=== PATIENT | female | born 1940 | race Caucasian/White ===

== ENCOUNTER 2021-10-11 15:44 | Emergency (ER) | payer MEDICARE, SELFPAY ==
[2021-10-11 15:47] VITALS: BP 177/96; PULSE 99; RESP 16; TEMP 36.8; O2SAT 97
[2021-10-11 16:24] LABS: Appearance Urine Slightly Cloudy (Clear); Bilirubin Urine Negative (Negative); Color Urine Yellow (Yellow); Glucose Urine UA Negative (Negative); Ketones Urine Negative (Negative); Leukocyte Esterase Ur 2+ LEU/UL (Negative); Nitrate Urine Positive (Negative); Protein Urine Negative (Negative); Specific Grav Ur 1.015 (1.001-1.035); Urobilinogen Urine 0.2 mg/dL (<2.0)
[2021-10-11 16:31] LABS: Bacteria Urine Trace /hpf; Mucus Urine Rare /lpf; Squamous Epithelial Cell Urine Rare /hpf (Few); WBC Urine 31-50 /hpf
[2021-10-11 16:32] LABS: Add Urine Microscopic? YES; Blood Urine Trace-Intact (Negative)
--- NOTE | 2021-10-11 16:41 | ED.GENADULT ---
HPI - General Adult General Chief complaint: Urogenital-Female Stated complaint: UTI Time Seen by Provider: 10/11/21 15:56 History of Present Illness HPI narrative: Patient is a 80-year-old female who presents ER with concern for UTI. Was diagnosed with UTI by Dr. Russell's office last week. She is unsure if it was resistant to any antibiotics but she has a long list of antibiotic allergies. She is scheduled to see valve patient tobramycin infusions but only received one-time dose while in ER at [facility]. Patient is having no fevers or chills or sweats. She is having dysuria and urinary frequency and urgency with some suprapubic pressure. She has come here to seek definitive treatment. Related Data Allergies Allergy/AdvReac Type Severity Reaction Status Date / Time cefaclor Allergy Unknown Urticaria Verified 05/14/18 14:43 ceftriaxone Allergy Unknown Unverified 05/25/15 12:45 cephalexin Allergy Unknown Urticaria Verified 05/14/18 14:43 ciprofloxacin Allergy Unknown Unverified 05/25/15 12:45 levofloxacin Allergy Unknown Urticaria Verified 05/14/18 14:43 metronidazole Allergy Unknown Urticaria Verified 05/14/18 14:43 Penicillins Allergy Unknown Urticaria Verified 05/14/18 14:43 Sulfa (Sulfonamide Allergy Unknown Urticaria Verified 05/14/18 14:43 Antibiotics) sulfamethoxazole Allergy Unknown Unverified 05/25/15 12:45 tetracycline Allergy Unknown Purpura Verified 05/14/18 14:43 trimethoprim Allergy Unknown Unverified 05/25/15 12:45 codeine AdvReac Unknown NAUSEA Unverified 05/25/15 12:45 Review of Systems Constitutional: Constitutional: Denies chills and Denies fever(s) Gastrointestinal: Gastrointestinal: Reports abdominal pain, Denies diarrhea, Denies nausea and Denies vomiting Genitourinary: Genitourinary: Denies hematuria, Reports dysuria, Denies flank pain and Denies urinary incontinence PMF Past Medical History Medical History (Updated 10/11/21 @ 21:52 by John Cooper MD) PMR (polymyalgia rheumatica) Family History Family History (Updated 05/14/18 @ 15:16 by DOCTOR UNKNOWN) Mother Family history of malignant neoplasm, Onset Age: 34 Sibling Family history of malignant neoplasm, Onset Age: 68 Grandparent Family history of dementia Social History Social History Smoking status: Never smoker Alcohol intake: current Exam Narrative: GENERAL: Well-appearing, well-nourished, and in no acute distress. HEAD: Normocephalic, atraumatic. CHEST: Clear to auscultation. No respiratory distress. HEART: Regular rate and rhythm. Normal peripheral pulses. ABDOMEN: Soft, nontender, nondistended. EXTREMITIES: Normal range of motion. No edema. SKIN: Warm, dry, no rash. NEURO: Alert and oriented x3. PSYCH: Normal mood and affect. Course Course Emergency Course: Patient resting comfortably. Discussed case with Dr. Russell's office. Currently patient has an E. coli infection that is pansensitive. We will prescribe fosfomycin as a one-time dose outpatient. Vital Signs Vital signs: Vital Signs Temperature 98.2 F 10/11/21 15:47 Pulse Rate 99 10/11/21 15:47 Respiratory Rate 16 10/11/21 15:47 Blood Pressure 177/96 H 10/11/21 15:47 Pulse Oximetry 97 10/11/21 15:47 Oxygen Delivery Room Air 10/11/21 15:47 Temperature 98.2 F 10/11/21 15:47 Pulse Rate 78 10/11/21 17:35 Respiratory Rate 18 10/11/21 17:35 Blood Pressure 142/68 H 10/11/21 17:35 Pulse Oximetry 99 10/11/21 17:35 Oxygen Delivery Room Air 10/11/21 15:47 Medical Decision Making Vital Signs Vital Signs: Vital Signs Temperature 98.2 F 10/11/21 15:47 Pulse Rate 99 10/11/21 15:47 Respiratory Rate 16 10/11/21 15:47 Blood Pressure 177/96 H 10/11/21 15:47 Pulse Oximetry 97 10/11/21 15:47 Oxygen Delivery Room Air 10/11/21 15:47 Temperature 98.2 F 10/11/21 15:47 Pulse Rate 78 10/11/21 17:35 Respiratory Rate 18 10/11/21 17:35 Blood Pressure 142/68 H 07
[2021-10-11 17:35] VITALS: BP 142/68; PULSE 78; RESP 18; O2SAT 99
== END 2021-10-11 17:36 | disposition home or self-care (01) ==
PROVIDERS: Emergency Provider Emergency Medicine; PCP Internal Medicine
DX: N39.0 Urinary tract infection, site not specified (principal); M35.3 Polymyalgia rheumatica
CPT/HCPCS: 81001; 87077; 87086; 87186; 99283

== ENCOUNTER 2023-03-20 07:17 | Outpatient (RCR) | payer MEDICARE, SELFPAY ==
[2023-03-14 09:16] VITALS: BMI 22.6
--- NOTE | 2023-04-12 10:23 | PCWOUND ---
WOCN NOTE Patient did not show up for appointment. called her, she is ill and can not come in at this time. she will call back if another appointment is needed when she is better.
== END 2023-05-28 08:13 | disposition home or self-care (01) ==
LOC: ANHWOC 07:17
PROVIDERS: PCP Physician Assistant Medical; Visit Provider Physician Assistant Medical
DX: S81.811D Laceration without foreign body, right lower leg, subsequent encounter (principal)
CPT/HCPCS: 99213; A9270; G0463

== ENCOUNTER 2025-01-05 11:54 | Outpatient (CLI) | payer MEDICARE, SELFPAY ==
--- NOTE | ~2025-01-05 | XR_ITS ---
Examination: XR chest 2V Clinical History: sob Comparison: 05/07/2022 Technique: PA and Lateral Findings: Cardiomediastinal silhouette normal size and configuration. Lungs clear. Calcified granulomata. No acute bony abnormality. IMPRESSION: 1. No acute cardiopulmonary findings. Reviewed, dictated and finalized at location R.
--- OUTSIDE RECORDS SUMMARY | 2025-01-05 12:08 | XMS_ITS | Encounter Summary ---
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 80mg [facility] [address] [place] [address] Phone: tel: Referral ID Status Reason Start Date Expiration Date V isits Requested Visits Authorized [id number] Closed Specialty Services 11/02/2020 12/03/2021 5 5 Encounter Details Date Type Department Care Team (Late st Contact Info) Description 11/02/2020 Therapy Plan [facility] [address] [place] [address] Los Russell MD [facility]ly [facility] [place] [address] Social History Tobacco Use Types Packs/Day Years Used Date Smoking Tobacco: Former Cigarettes 2 40 1 967 - 2007 Smokeless Tobacco: Never Alcohol Use Standard Drinks/Week Comments Yes 0 (1 standard drink = 0.6 oz pur e alcohol) occasionally drink wine AUDIT-C Answer Date Recorded Frequency of Alcohol Consumption 2-4 times a sun08/29/2018 Average Number of Drinks 1 or 2 019 Frequency of Binge Drinking Not on file 08/08 Comments No Sex and Gender Information Value Date Recorded Sex Assigned at Female 09/25/2024 9:21 AM CDT Legal Sex Female 7:07 PM CDT Gender Identity Female 09/25/2024 9:21 AM CDT Sexual Orientation Not on file COVID-19 Exposure Response Date Recorded In the last month, have you been in contact with someone who was confirmed or suspected to have Coronavirus / COVID-19? No / Unsure 11/05/2020 12:23 PM CDT documented as of this encounter Functional Status * RETIRED Are you deaf or do you have serious difficulty hearing Answer Date of Assessment Author Status No 09/20/2018 5:17 PM CDT Activ e * RETIRED Are you blind or do you have serious difficulty seeing, even when wearing glasses? Answer Date of Assessment Author Status No 09/20/2018 5:17 PM CDT Activ e * Do you have serious difficulty walking or climbing stairs? Answer Date of Assessment Author Status No 09/20/2018 5:17 PM CDT Mimi Cabrera R N Active * Do you have difficulty dressing or bathing? Answer Date of Assessment Author Status No 09/20/2018 5:17 PM CDT Mimi Cabrera R N Active * Because of a physical, mental, or emotional condition, do you have difficulty doing errands alone such as visiting a doctor's office or shopping? Answer Date of Assessment Author Status No 09/20/2018 5:17 PM CDT Mimi Cabrera R N Active documented as of this encounter Mental Status * Because of a physical, mental, or emotional condition, do you have serious difficulty concentrating, remembering, or making decisions? 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
--- OUTSIDE RECORDS SUMMARY | 2025-01-05 12:08 | XMS_ITS | Encounter Summary ---
Author Organization [facility] Address [address] [place], [place] [address] [address] Care Team Providers Care Workers' Compensation Claims Supervisor Name Role Phone Delmis Sibley Primary Care Provider [phone] Encounter Details Date Type Department Care Team (Late Contact Info) Description 12/26/2024 Orders Only [facility] - Rheumatology [address], [address] [place] [address] Emile Morris DO [address] [facility] [address] [place] [address] Rheumatoid arthritis involving multiple joints (HCC) Social History Tobacco Use Types Packs/Day Years Used Date Smoking Tobacco: Never Smokeless Tobacco: Never Alcohol Use Standard Drinks/Week Comments Yes 0 (1 standard drink = 0.6 oz pur e alcohol) PHQ-2 Answer Date Recorded Patient Health Questionnaire-2 Score 0 12/18/2024 Comments Unknown Sex and Gender Information Value Date Recorded Sex Assigned at Not on file 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 - Rheumatology [address], [address] [place] [address] Emile Morris DO [address] [place] [address] Elevated serum creatinine 08/13/2025 11:20 AM CDT Office Visit [facility] - Rheumatology [address] [facility], [address] [place] [address] Emile Morris DO [address] [facility] [address] [place] [address] documented as of this encounter Visit Diagnoses Diagnosis Rheumatoid arthritis involving multiple joints (HCC) Elevated serum creatinine Other nonspecific findings on examination of blood documented in this encounter Care Teams Workers' Compensation Claims Supervisor Relationship Specialty Start Date End Date Delmis Sibley PA [address] [place] [address] PCP - General Physician Radiologic Electronic Specialist 07/21/24 documented as of this encounter
--- OUTSIDE RECORDS SUMMARY | 2025-01-05 12:08 | XMS_ITS | Clinical Summary ---
Author Organization [facility] Address [address] [place] [address] Care Team Providers Care Site Director Name Role Phone Delmis Sibley Primary Care Provider [phone] Allergies Active Allergy Reactions Criticality Noted Date Comments Adhesive Other (See comments) Low 08/16/2023 Causes skin tears Azithromycin Hives Medium 09/16/2018 Aztreonam Rash Medium 09/27/2018 Cefaclor Hives Medium 09/16/2018 Ceftriaxone Anaphylaxis High 09/16/2018 Cephalexin Anaphylaxis High 09/16/2018 Ciprofloxacin Hcl Anaphylaxis High 09/16/2018 Clindamycin Hives Medium 09/16/2018 Codeine Vomiting Low 09/16/2018 Etomidate Rash Medium 08/16/2023 Iodinated Contrast Media Rash Medium 09/16/2018 Levofloxacin Hives Medium 09/16/2018 Meropenem Hives Medium 09/16/2018 Metronidazole Hives Medium 09/16/2018 Nitrofurantoin Vomiting Low 09/16/2018 Omeprazole Hives Medium 09/16/2018 Oxycodone Hives Medium 08/16/2023 Penicillin Hives Medium 09/16/2018 Sulfamethoxazole-Trimeth oprim Anaphylaxis High 08/16/2023 Sulfa (Sulfonamide Antibiotics) Anaphylaxis High 09/16/2018 Tetracyclines Hives Medium 09/16/2018 Medications cholecalciferol (VITAMIN D3) 5,000 unit tabletIndications: Vitamin D Deficiency Take 1 tablet (5,000 Units total) by mouth daily Active fluticasone propion-salmeterol (ADVAIR DISKUS) 250-50 mcg/dose diskus inhalerIndications :Bronchospasm Prevention with COPD Inhale 1 puff 2 (two) times a day. Indications: Bronchospasm Prevention with COPD Active folic acid (FOLVITE) 1 mg tabletIndications: Folic Acid Deficient Megaloblastic Anemia Take 1 mg by mouth daily. Indications: Anemia From Inadequate Folic Acid Active hydroCHLOROthiazid e (HYDRODIURIL) 12.5 mg tabletIndications: hypertension Take 12.5 mg by mouth daily. Indications: high blood pressure Active pantoprazole DR (PROTONIX) 40 mg EC tabletIndications: Treatment of Non-Bleeding Gastric Disorder Take 40 mg by mouth daily. Indications: Treatment of Non-Bleeding Gastric Disorder Active predniSONE (DELTASONE) 2.5 mg tabletIndications: autoimmune disease Take 5 mg by mouth daily. Indications: disease in which body has immune response against itself Active levothyroxine (SYNTHROID) 75 mcg tabletIndications: hypothyroidism Take 75 mcg by mouth hot shot before breakfast. Indications: hypothyroidism Active terazosin (HYTRIN) 2 mg capsuleIndications :benign prostatic hyperplasia with lower urinary tract sx Take 2 mg by mouth nightly. Indications: enlarged prostate with urination problem Active diphenhydramine HCl (BENADRYL ORAL)Indications:p revention of allergic reaction Take 25 mg by mouth every 6 (six) hours as needed (prevention of allergic reaction). Indications: prevention of allergic reaction Active ondansetron ODT (ZOFRAN-ODT) 4 mg disintegrating tabletIndications: Prevention of Post-Operative Nausea and Vomiting Take 4 mg by mouth every 4 (four) hours as needed for nausea. Indications: Prevent Nausea and Vomiting After Surgery Active metroNIDAZOLE (FLAGYL) 500 mg tabletIndications: Abdominal/Pelvic Infection Take 500 mg by mouth 2 (two) times a day. RX [id number] take for 10 days Indications: Abdominal/Pelvic Infection 12/10/19 20 Active ALPRAZolam (XANAX) 0.5 mg tabletIndications: anxiety Take 0.25 mg by mouth 2 (two) times a day as needed for anxiety. RX # [id number] Indications: anxious 02/22/20 19 Active potassium chloride ER (potassium chloride ER) 10 mEq CR tabletIndications: hypokalemia Take 10 mEq by mouth 2 (two) times a day. Indications: low amount of potassium in the blood Active oxyCODONE (ROXICODONE) 5 mg immediate release tabletIndications: Pain Take 5 mg by mouth every 4 (four) hours as needed for pain. RX # [id number] Indications: pain 12/12/19 Active DAPTOMYCIN IVIndications:infe ction Infuse 250 mg into a venous catheter daily. 250mg/100 ml normal saline IV over 60 minutes Indications: an infection 12/12/19 Active ceftolozane-tazoba ctam (ZERBAXA) 1.5 gram recon solnIndications:in fection,Other (complete free text reason below) Infuse 1.5 g into a venous catheter every 8 (eight) hours. 1.5 G/100 ml IV over 60 minutes every 8 hours by flow rate tubing set at 100 ml/hour Indications: an infection, Other (complete free text reason below) 12/11/19 Active 0.9 % sodium chloride (INV-BJ sodium chloride 0.9%) injectionIndicatio ns:Maintain Patency of Indwelling Vascular Catheter Infuse 10 mL into a venous catheter 4 (four) times a day. Use SASH method before and after IV antibiotic and prn lab draws Indications: prevent clot from blocking an intravenous catheter 12/11/19 Active heparin sod,porcine/0.9 % NaCl (HEPARIN FLUSH IV)Indications:Parvin ntain Patency of Indwelling Vascular Catheter Infuse 5 mL into a venous catheter 4 (four) times a day. Use SASH method and prn lab draws Indications: prevent clot from blocking an intravenous catheter 12/11/19 Active levothyroxine (SYNTHROID) 50 mcg tabletIndications: hypothyroidism Take 50 mcg by mouth hot shot before breakfast. Indications: a condition with low thyroid hormone levels Active albuterol sulfate (VENTOLIN HFA INHAL)Indications: SOB Inhale 1 puff every 4 (four) hours as needed (SOB). Indications: SOB Active folic acid/multivit-min/ lutein (CENTRUM SILVER ORAL)Indications:V ITAMIN HEALTH Take 1 mg by mouth daily. Indications: VITAMIN HEALTH Active cholecalciferol, vitamin D3, (VITAMIN D3 ORAL)Indications:V ITAMIN HEALTH Take 1 capsule by mouth daily. 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 08/14/2023 Dysfunction of left eustachian tube 08/14/2023 Tinnitus of both ears 08/14/2023 Surgical History Surgery Date Site/Laterality Comments TONSILLECTOMY TUBAL LIGATION HERNIA REPAIR COLECTOMY EYE SURGERY cataracts OTHER SURGICAL HISTORY iliostomy hertnia OTHER SURGICAL HISTORY cardiac ablation Medical History Medical History Date Comments Autoimmune disease Anxiety COPD (chronic obstructive pulmonary disease) Heart disease A-fib (HCC) HL (hearing loss) Family History Medical History Relation Name Comments Cancer Mother Cancer Sister Relation Name Status Comments Mother Sister Social History Tobacco Use Types Packs/Day Years Used Date Smoking Tobacco: Former Cigarettes Smokeless Tobacco: Never Comments Unknown Sex and Gender Information Value Date Recorded Sex Assigned at Not on file 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 Gender Identity Not on file Sexual Orientation Not on file Obstetrics History Last Filed Vital Signs Vital Sign Reading Time Taken Comments Blood Pressure 130/82 02/05/2020 1:08 PM CDT Pulse 74 02/05/2020 1:08 PM CDT Temperature 36.6 C (97.8 F) 02/05/2020 1:08 PM CDT Respiratory Rate 18 08/16/2023 8:51 AM CDT Oxygen Saturation 98% 02/05/2020 1:08 PM CDT Inhaled Oxygen Concentration - - Weight 52.2 kg (115 lb) 08/16/2023 8:51 AM CDT Height 152.4 cm (5') 08/16/2023 8:51 AM CDT Body Mass Index 22.46 08/16/2023 8:51 AM CDT Plan of Treatment Health Maintenance Due Date Last Done Comments Depression Screening 1941 Fall Risk Assessment 1940 Hepatitis B Screening 12/15/1959 Pneumococcal vaccine 65+ (1 of 2 - PCV) 1960 Zoster Vaccine (1 of 2) 12/15/1991 Well Visit 65+ 2006 Covid-19 Vaccine (3 - season) 12/08/202409/2020, 06/15/2020 Influenza Vaccine (#1) 2024 01/30/2012 Osteoporosis Screening-Bone Density Scan 01/11/2025 01/11/2023 DTaP/Tdap/Td Vaccine (3 - Td or Tdap) 01/11/203108/2020, 10/12/2016 Insurance MEDICARE [facility] MEDICARE [facility] Advance Directives For more information, please contact: [phone] * Full Code (Latest Code Status on File) Date Activated Date Inactivated Comments 09/16/2018 9:53 PM Care Teams Site Director Relationship Specialty Start Date End Date Delmis Sibley PA [address] [place] [id number] PCP - General Family Practice 07/30/23
--- OUTSIDE RECORDS SUMMARY | 2025-01-05 12:08 | XMS_ITS | Clinical Summary ---
Author Organization [facility] Administrative Offices Address [address] [place] [id number] Care Team Providers Care Glass Cylinder Flanger Name Role Phone Eduardo Inman MD Primary Care Provider [phone] Allergies Active Allergy Reactions Criticality Noted Date Comments Adhesive Other (See Comments) 11/10/2019 Causes skin tears. Azithromycin Hives High 09/04/2019 Aztreonam Hives High 09/04/2019 Cefaclor Hives High 09/04/2019 Ceftriaxone Anaphylaxis High 09/04/2019 Cephalexin Anaphylaxis High 09/04/2019 Ciprofloxacin Anaphylaxis High 09/04/2019 Clindamycin Hives High 09/04/2019 Codeine Nausea and Vomiting Low 09/04/2019 Etomidate Rash Low 04/19/2021 Iodinated Contrast Media Rash Low 09/04/2019 Iodine Rash Medium 08/28/2018 Can have if pre-medicated with Benadryl and solumedrol Levofloxacin Hives High 09/04/2019 Meropenem Hives High 09/04/2019 Metronidazole Hives High 09/04/2019 Nitrofuran Analogues Nausea and Vomiting Low 2019 Omeprazole Hives High 09/04/2019 Oxycodone-Acetaminophen Hives High 12/01/2019 Penicillins Hives High 09/04/2019 Sulfamethoxazole Other (See Comments) Low 12/12/2013 Unknown Sulfamethoxazole-Trimetho prim Anaphylaxis High 09/04/2019 Tetracycline Hcl Anaphylaxis High 09/04/2019 Trimethobenzamide Other (See Comments) Low 12/12/2013 Unknown Medications fluticasone propion-salme teroL (ADVAIR DISKUS,WIXELA INHUB) 250-50 mcg/dose disk inhaler Take 2 Puffs by inhalation see administration instructions. She says she only takes as needed Active ALPRAZolam (XANAX) 0.25 mg tablet Take 0.25 mg by mouth nightly as needed for Anxiety (pt takes 1/2 pill). Active cholecalcifer ol, vitamin D3, (VITAMIN D3 ORAL) Take 2,000 Units by mouth. Active multivit-min/ iron/folic/gia tein (MULTIVITAMIN WOMEN 50 PLUS ORAL) Take 1 mg by mouth. Active terazosin (HYTRIN) 1 mg capsule Take 1 mg by mouth daily at bedtime. Says she takes PRN for blood pressure Active levothyroxine 50 mcg tablet Take 50 mcg by mouth daily in the morning. Alternates taking 50 mg and 75 mg every other day Active diphenhydrAMI NE (BENADRYL) 25 mg capsule Take 50 mg by mouth every 6 hours as needed for Allergies. Active estradioL (ESTRACE) 0.01% (0.1 mg/g) vaginal cream Insert vaginally daily. Active cranberry-vit rosales C-vitamin E (Cranberry Concentrate) 140-100 mg Capsule Take by mouth daily. Active ascorbic acid (vitamin C) 500 mg chewable tablet Take 500 mg by mouth daily. Active predniSONE (DELTASONE) 2.5 mg tablet Take 2.5 mg by mouth daily. Is taking 10/07/24 2 tabs daily Active triamcinolone acetonide (Kenalog) 40 mg/mL Suspension 40 mg one time only. Active glycopyrrolat e-neostigmine (Prevduo) 0.6 mg-3 mg/3mL (0.2 mg-1mg/mL) Syringe Inject by intravenous injection. Not taking Active ketoconazole (NIZORAL) 2 % Cream APPLY TO THE AFFECTED AREA(S) toenails BY TOPICAL ROUTE ONCE DAILY 09/24/19 24 Active apixaban (Eliquis) 2.5 mg tablet Take 1 tablet by mouth twice daily 60 Tablet 2 09/20/19 25 Active calcium as CARBONATE-vit rosales D3 (CALTRATE 600+D) 600 mg-5 mcg (200 unit) Tablet Take 2 Tablets by mouth 2 times daily. Active methotrexate (RHEUMATREX) 2.5 mg Tablet TAKE 6 TABLETS BY MOUTH ONCE A WEEK AT BEDTIME EACH SUNDAY Active folic acid (FOLVITE) 1 mg tablet TAKE 1 TABLET BY MOUTH ONCE DAILY TO REDUCE RISK OF METHOTREXATE RELATED SIDE EFFECTS Active rosuvastatin (Crestor) 5 mg tablet Take 1 Tablet (5 mg) by mouth daily. 90 Tablet 3 10/08/19 25 Active dilTIAZem (CARDIZEM CD, CARTIA XT) 120 mg Controlled Delivery 24 hour capsule Take 1 capsule by mouth once daily 90 Capsule 2 12/20/19 25 Active dilTIAZem (CARDIZEM CD, CARTIA XT) 120 mg Controlled Delivery 24 hour capsule Take 1 capsule by mouth once daily 90 Capsule 09/23/19 25 2024 Discontinued Active Problems Patient Care Coordination No te Formatting of this note migh t be different from the original. Seth Salazar MD--Internal Control Consultant ([facility] @ ) Duane Ham MD--Internal Control Consultant ([facility] @ ) Problem Noted Date Diagnosed Date Mixed hyperlipidemia 12/11/2023 Paroxysmal atrial fibrillation 09/21/2022 Palpitations 04/19/2021 COPD (chronic obstructive pulmonary disease) 02/2022 PMR (polymyalgia rheumatica) 04/19/2021 Hyperglycemia 04/19/2021 Benign hypertension 09/16/2020 Protein-calorie malnutrition, moderate 0 Atrial flutter 11/30/2019 Sepsis 11/30/2019 Intra-abdominal abscess 11/30/2019 Hyponatremia 11/30/2019 Abdominal wall abscess at site of surgical wound 11/30/2019 Intestinal obstruction 11/03/2019 Peristomal hernia 11/03/2019 Confusion 11/03/2019 Dehydration 11/03/2019 Ileostomy status 09/06/2019 Atrial fibrillation with RVR Probable sepsis Allergy to multiple antibiotics Pseudomonas aeruginosa infection History of hernia repair History of diverticulitis Encounters Date Type Department Care Team Description 12/19/2024 Refill [facility] [address] [place] [address] Duane Ham MD 10/28/2024 External Device Data STL ABSTRACTION Provider, Abstract 10/22/2024 External Device Data STL ABSTRACTION Provider, Abstract 10/22/2024 External Device Data ST[facility] ABSTRACTION Provider, Abstract 10/07/2024 8:15 AM CDT Office Visit [facility] [address] [place] [address] Duane Ham MD Paroxysmal atrial fibrillation (CMS/HCC) (Primary Dx); Mixed hyperlipidemia; Benign hypertension from Last 3 Months Family History Medical History Relation Name Comments No Known Problems Brother No Known Problems Daughter No Known Problems Father No Known Problems Maternal Grandfather No Known Problems Maternal Grandmother Hypertension Mother Ovarian Cancer Mother Heart Disease Other No Known Problems Paternal Grandfather No Known Problems Paternal Grandmother Breast Cancer Sister No Known Problems Son Relation Name Status Comments Brother Daughter Father Maternal Grandfather Maternal Grandmother Mother Other Paternal Grandfather Paternal Grandmother Sister Son Social History Tobacco Use Types Packs/Day Years Used Date Smoking Tobacco: Former Cigarettes Q uit: 05/26/2006 Smokeless Tobacco: Never Tobacco Cessation:Counseling Given: Not Answered Alcohol Use Standard Drinks/Week Comments Yes 5 (1 standard drink = 0.6 oz pur e alcohol) Comments No Sex and Gender Information Value Date Recorded Sex Assigned at Not on file Legal Sex Female 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 Gender Identity Not on file Sexual Orientation Not on file Last Filed Vital Signs Vital Sign Reading Time Taken Comments Blood Pressure 154/84 10/07/2024 8:15 AM CDT Pulse 73 10/07/2024 8:15 AM CDT Temperature 36.6 C (97.8 F) 10/08/2021 12:08 AM CDT Respiratory Rate 18 10/08/2021 12:08 AM CDT Oxygen Saturation 96% 10/07/2024 8:15 AM CDT Inhaled Oxygen Concentration - - Weight 50.8 kg (112 lb) 10/07/2024 8:15 AM CDT Height 157.5 cm (5' 2) 10/07/2024 8:15 AM CDT Body Mass Index 20.49 10/07/2024 8:15 AM CDT Plan of Treatment Upcoming Encounters Date Type Department Care Team (Late st Contact Info) Description 10/08/2025 9:30 AM CDT Office Visit [facility] [address] [place] [address] Duane Ham MD [address] [place] [address] [address] [place] [id number] Health Maintenance Due Date Last Done Comments PNEUMOCOCCAL VACCINE 50+ YEA RS (1 of 2 - PCV) 1960 ZOSTER VACCINE (1 of 2) 12/15/1991 RSV VACCINE (60+ or ) (1 - 1-dose 75+ series) 2016 INFLUENZA VACCINE (#1) 2024 COVID-19 Vaccine (3 - 2024-2 6 season) 2024 07/13/2020, 06/15/2020 OSTEOPOROSIS SCREENING 01/12/2028 , 01/11/2023, 07/30/2017 DTAP/TDAP/TD VACCINES (3 - T d or Tdap) 01/11/2031 01/11/2021, 10/12/2016 COLORECTAL SCREENING Discontinued 12/05/2018, 06/01/19 16 Colorectal Cancer Screening Discontinued Flex Sig/CT Colonography Q 5 years Discontinued 09/15/2019, 09/15/2019, 12/05/2018 FIT-DNA Q 3 years Discontinued FIT/FOBT Q 1 year Discontinued Medical Devices Implanted Type Area Academic Affairs Assistant Device Identifier Shelf Expiration Date Model / Serial / Lot Barrier Seprafilm 3x5in [id number] - [id number] Implanted:Qty : 1 on 11/19/2019 by Addison Malagon MD at [facility] Adhesion Barrier N/A: Abdomen [employer] [id number] 10/06/2021 [id number] / / [id number] Dev Vns Vasc Clsr Vascade Mvp [address] [id number] - [id number] Implanted:Qty : 1 on 05/17/2021 at [facility] Closure Device Right: Groin [employer] [id number] / / [id number] Dev Vns Vasc Clsr Vascade Mvp [address] [id number] - [id number] Implanted:Qty : 1 on 05/17/2021 at [facility] Closure Device Right: Groin [employer] [id number] / / [id number] Dev Vns Vasc Clsr Vascade Mvp St [id number] - [id number] Implanted:Qty : 1 on 05/17/2021 at [facility] Closure Device Left: Groin [employer] [id number] / / [id number] Mesh [address] 4.5in Rnd [id number] - [id number] Implanted:Qty : 1 on 11/19/2019 by Addison Malagon MD at [facility] Mesh N/A: Abdomen CR [employer] [id number] 01/04/2021 [id number] / / [id number] Description:req# [id number] Procedures Procedure Name Priority Date/Time Associated Diagnosis Comments FLEXIBLE SIGMOIDOSCOPY REPORT 09/15/2019 10:44 AM CDT from Last 3 Months or Most Recently Relevant to Health Maintenance Results * FLEXIBLE SIGMOIDOSCOPY REPORT (09/15/2019 10:44 AM CDT) Narrative Procedure Note Addison Malagon MD - 09/15/2019 10:43 AM CDT [facility] Endoscopy Patient Name: Lisa Felix Procedure Date: 09/15/2019 Date of : 1940 Admit Type: Outpatient Attending MD: Addison Malagon , Procedure: Flexible Sigmoidoscopy Indications: Evaluate anatomy prior to consideration of ileostomy reversal, hx of total abdominal colectomy and prior partial colectomy Providers: Addison Malagon Referring MD: Medicines: Propofol per Anesthesia Complications: No immediate complications. Procedure: Informed consent was obtained for the procedure, including moderate sedation after risks were discussed. Based on the pre-procedure assessment, including review of the patient's medical history, medications, allergies, and review of systems, the patient was deemed to be an appropriate candidate for sedation. A timeout was performed. Continuous ECG monitoring, pulse oximetry, blood pressure monitoring, and direct observation were performed. The Colonoscope was introduced through the anus and advanced to the sigmoid colon. The flexible sigmoidoscopy was accomplished without difficulty. The patient tolerated the procedure well. The quality of the bowel preparation was good. Estimated Blood Loss: Estimated blood loss: none. Findings: The perianal and digital rectal examinations were normal. The entire examined rectal stump appeared normal. Appears to be an side-to-end prior colorectal anastomosis. Impression: - The entire examined colon is normal. - No specimens collected. Recommendation: - Patient has a contact number available for emergencies. The signs and symptoms of potential delayed complications were discussed with the patient. Return to normal activities tomorrow. Written discharge instructions were provided to the patient. Addison Malagon, 09/15/2019 10:43:18 AM Number of Addenda: [address]; [place] [address] Addison Malagon MD GI PROCEDURE ORDERABLES Fi nal Result from Last 3 Months or Most Recently Relevant to Health Maintenance Insurance MEDICARE PART A AND B [facility] Medicare Part D Advance Directives For more information, please contact: [phone] Documents on File Type Date Recorded Patient Engagement Liaison Expl anation Advance Directive Living Will 11/19/2019 6:20 AM Advance Directive POA 11/19/2019 6:20 AM A dvance Directive POA * Full Code (Latest Code Status on File) Date Activated Date Inactivated Comments 05/17/2021 10:14 AM 05/17/2021 9:06 PM * Full Code Date Activated Date Inactivated Comments 04/19/2021 12:15 PM 04/19/2021 9:06 PM * Full Code Date Activated Date Inactivated Comments 04/19/2021 5:16 AM 04/19/2021 12:15 PM * Full Code Date Activated Date Inactivated Comments 11/19/2019 8:08 PM 11/23/2019 3:21 PM * Full Code Date Activated Date Inactivated Comments 11/19/2019 5:36 AM 11/19/2019 8:07 PM Care Teams Glass Cylinder Flanger Relationship Specialty Start Date End Date Eduardo Inman MD [address] [place] [id number] PCP - General Family Practice 09/28/23
--- OUTSIDE RECORDS SUMMARY | 2025-01-05 12:08 | XMS_ITS | Clinical Summary ---
Author Organization [facility] Address [address] [place] [address] Care Team Providers Care Radar Signal Processing Engineer Name Role Phone Delmis Joyner PA-C Primary Care Provider [phone] Allergies Active Allergy Reactions Criticality Noted Date Comments Azithromycin Hives 02/02/2012 Cefaclor Hives 02/02/2012 Cephalexin Anaphylaxis High 02/02/2012 Ciprofloxacin Anaphylaxis High 02/02/2012 Clindamycin Hives 08/28/2018 Codeine Vomiting 02/02/2012 Iodine Rash Low 08/28/2018 Can have if pre-medicated with Benadryl and solumedrol Levofloxacin Hives 02/02/2012 Meropenem Hives High 08/30/2018 Metronidazole Hives 02/02/2012 Nitrofuran Derivatives Nausea and Vomiting Low 08/08 Nitrofurantoin Vomiting 08/29/2018 Omeprazole Hives 08/28/2018 Penicillins Hives 02/02/2012 Ceftriaxone Anaphylaxis High 08/29/2018 Sulfamethoxazole-Trimetho prim Anaphylaxis High 02/02/2012 Tetracyclines & Related Anaphylaxis High 02/02/2012 Trimethobenzamide Other (see comment) Low 4 Unknown Medications terazosin 2 MG capsule Take 1 capsule by mouth as needed. 2 08/09/19 19 Active ADVAIR DISKUS 250-50 MCG/DOSE inhaler Inhale 1 puff into the lungs 2 (two) times daily as needed. 2 08/18/19 19 Active SYNTHROID 75 MCG tablet Take 1 tablet by mouth daily. Before breakfast 2 08/09/19 Active diphenhydrAMINE 25 MG tablet Take 25 mg by mouth 2 (two) times daily as needed for Allergies. Active apixaban 5 MG tablet Take 5 mg by mouth 2 (two) times daily. Active dilTIAZem XR (DILACOR XR) 120 MG 24 hr capsule Take 120 mg by mouth daily. Active Cholecalciferol (VITAMIN D) 50 MCG (2000 UT) Tab Active estradiol (ESTRACE) 0.1 MG/GM vaginal creamIndications:R ecurrent UTI Apply every other night for 3 weeks, then 2 times per week. 42.5 g 5 11/18/19 22 Active Additional Information Patient not taking.Reported on 09/25/2024 fluconazole (DIFLUCAN) 150 MG tablet TAKE 1 TAB BY MOUTH TODAY , REPEAT DOSE IN 3 DAYS 10/15/19 Active mupirocin (BACTROBAN) 2 % ointment APPLY OINTMENT TOPICALLY TO AFFECTED AREA TWICE DAILY FOR 7 DAYS 09/27/19 22 Active traMADol (ULTRAM) 50 MG tabletIndications: Acute Pain < 3 Day Supply Take 1 tablet (50 mg total) by mouth every 6 (six) hours as needed for Pain. Indications: Acute Pain < 3 Day Supply 12 tablet 08/24/19 23 Active Additional Information Patient not taking.Reported on 09/25/2024 ondansetron (ZOFRAN-ODT) 4 MG disintegrating tablet Take 1 tablet (4 mg total) by mouth every 8 (eight) hours as needed for Nausea. 15 tablet 08/24/19 Active Additional Information Patient not taking.Reported on 09/25/2024 calcium carbonate-vitamin D 600-5 MG-MCG Tab Take 2 tablets by mouth 2 (two) times daily with meals. Active folic acid (FOLVITE) 1 MG tablet Take 1 tablet (1 mg total) by mouth daily. Active methotrexate (TREXALL) 2.5 MG tablet Take 1 tablet (2.5 mg total) by mouth once a week. Active vitamin C (ASCORBIC ACID) 500 MG tablet Take 1 tablet (500 mg total) by mouth daily. Active predniSONE (DELTASONE) 5 mg tablet Take 1.5 (one and one-half) tablets by mouth every morning, THEN 1 (one) tablet every morning, THEN 0.5 (one-half) tablet every morning, THEN 0.5 (one-half) tablet every 14 days. May take initial dose 08/06/2024 as early as possible. Reasons: Rheumatoid Arthritis. 09/10/19 25 Active terazosin (HYTRIN) 2 MG capsule Take 1 capsule (2 mg total) by mouth daily. Active Active Problems Problem Noted Date Diagnosed Date Renal cysts, acquired, bilateral 01/05/2022 Urinary tract infection, site not specified 10/08 Hypokalemia 09/20/2018 Current chronic use of systemic steroids 019 Colitis 09/20/2018 Chronic bronchitis ([facility]) 09/20/2018 Giant cell arteritis ([facility]) 9 Polymyalgia rheumatica ([facility]) 09/20/2018 Hx of polymyalgia rheumatica 09/14/2018 Status post ileostomy ([facility]) 09/14/19 19 Resolved Problems Problem Noted Date Diagnosed Date Resolved Date Peritonitis ([facility]) 08/29/2018 09/14/2018 Sepsis ([facility]) 08/29/201811/2018 Anxiety 02/04/2012 09/14/2018 Hypothyroidism 02/04/2012 09/14/2018 Hypertension 02/04/2012 09/14/2018 Encounters Date Type Department Care Team Description 11/07/2024 9:10 AM CDT - 11/07/2024 11:59 PM CDT Hospital Encounter [facility] [address] [place] [address] Jason Morris DO Discharge Disposition: Home or Self Care (Routine Discharge) 11/07/2024 Orders Only [facility] [address] [place] [address] Emile Morris DO 11/07/2024 Travel from Last 3 Months Immunizations Immunization Administration Dates Next Due Influenza (Generic) 04/11/2013 Influenza Adult (Generic) 01/30/2012 MODERNA COVID-19 (12+) MRNA, LNP-S, PF, 100 MCG/ 0.5 ML DOSE 07/13/2020,06/15/2020 Tdap (Adacel) 01/11/2021,10/12/2016 Tdap (Boostrix) 02/28/2023() Family History Medical History Relation Comments Cancer Mother female parts Cancer Sister pancreatic Relation Status Comments Mother Sister Social History Tobacco Use Types Packs/Day Years Used Date Smoking Tobacco: Former Cigarettes 2 40 1 967 - 2007 Smokeless Tobacco: Never Tobacco Cessation:Counseling Given: Not Answered Alcohol Use Standard Drinks/Week Comments Yes 13.3 (1 standard drink = 0.6 oz pure alcohol) AUDIT-C Answer Date Recorded Frequency of Alcohol Consumption 2-4 times a sun08/29/2018 Average Number of Drinks 1 or 2 019 Frequency of Binge Drinking Not on file 08/08 PHQ-2 Answer Date Recorded PHQ-2 Score - If the patient scores above 3, please move on to questions 3-9 0 01/05/2022 Comments No Sex and Gender Information Value Date Recorded Sex Assigned at Female 09/25/2024 9:21 AM CDT Legal Sex Female 7:07 PM CDT Gender Identity Female 09/25/2024 9:21 AM CDT Sexual Orientation Not on file Last Filed Vital Signs Vital Sign Reading Time Taken Comments Blood Pressure 150/89 09/25/2024 9:21 AM CDT Pulse 79 09/25/2024 9:21 AM CDT Temperature 36.1 C (97 F) 09/25/2024 9:21 AM CDT Respiratory Rate 18 09/25/2024 9:21 AM CDT Oxygen Saturation 98% 09/25/2024 9:21 AM CDT Inhaled Oxygen Concentration - - Weight 50.8 kg (112 lb) 09/25/2024 9:21 AM CDT Height 160 cm (5' 3) 09/25/2024 9:21 AM CDT Body Mass Index 19.84 09/25/2024 9:21 AM CDT Plan of Treatment Health Maintenance Due Date Last Done Comments Pneumococcal Vaccine: 50+ Years (1 of 2 - PCV) 1960 Zoster Vaccines (1 of 2) 12/15/1991 Annual Medicare Wellness Visit 2006 RSV Immunization or 60+ Years (1 - 1-dose 75+ series) 2016 PHQ-2 (Physician [place]bee) 04/09/2024 COVID-19 Vaccine (3 - 2024-2 6 season) 2024 07/13/2020, 06/15/2020 DTaP, Tdap and Td Vaccines ( 3 - Td or Tdap) 01/11/2031 01/11/2021, 10/12/2016 Dexa Scan (General) Completed 01/11/2023 Meningococcal B Vaccine Aged Out No l onger eligible based on patient's age to complete this topic Meningococcal Vaccine Aged Out No shelley renny eligible based on patient's age to complete this topic RSV Immunizations Under 20 Months Aged Out No longer eligible b ased on patient's age to complete this topic Procedures Procedure Name Priority Date/Time Associated Diagnosis Comments C-REACTIVE PROTEIN Routine 11/07/2024 9: 25 AM CDT Methotrexate, correction, current use BONE DENSITY/DEXA Routine 01/11/2023 1:0 2 PM CDT Other primary ovarian failure Encounter for screening for osteoporosis from Last 3 Months or Most Recently Relevant to Health Maintenance Results * (ABNORMAL) C-REACTIVE PROTEIN (11/07/2024 9:25 AM CDT) C-REACTIVE PROTEIN 0.37(H) <0.29 mg/dL 11/07/2024 1:48 PM CDT [facility] 11/07/2024 9:25 AM CDT us Emile Morris DO LABORATORY Final Result [facility] [address] [place] [address], * BONE DENSITY/DEXA (01/11/2023 1:02 PM CDT) Anatomical Region Laterality Modality Bone Bone Density 01/11/2023 1:37 PM CDT Impressions 01/11/2023 1:40 PM CDT =====IMPRESSION:===== The patient bone density osteoporotic according to the World Health Organization (WHO) criteria 10 year fracture risk: Not performed as to value is below -2.5 Ordered By: DELMIS JOYNER Interpreted By: Ian Price MD, 01/11/2023 1:37 PM Narrative 01/11/2023 1:40 PM CDT EXAMINATION: Bone Density Axial EXAM DATE/TIME: 01/11/2023 12:50 PM REASON FOR EXAM: post menopausal status COMPARISON: None FINDINGS: DEXA bone densitometry The bone mineral density (BMD) was determined by dual-energy x-ray absorptiometry, the results are as follows: AP Lumbar Spine L1 through L4 BMD Patient (GM/SQCM): 0.795 T-Score (Standard deviations from young adult peak bone density): -2.3 and a Z- Score of 0.4. . It should be noted that scoliosis and osteoarthritis may falsely increase bone mineral density measured in the lumbar spine. . Left mean femoral neck: BMD Patient (GM/SQCM): 0.553 T-Score (Standard deviations from young adult peak bone density): -2.7 and a Z- Score of -0.3. Left Total femur: BMD Patient (GM/SQCM): 0.694 T-Score (Standard deviations from young adult peak bone density): -2.0 and a Z- Score of 0.0. Procedure Note Ian Price MD - 01/11/2023 EXAMINATION: Bone Density Axial EXAM DATE/TIME: 01/11/2023 12:50 PM REASON FOR EXAM: post menopausal status COMPARISON: None FINDINGS: DEXA bone densitometry The bone mineral density (BMD) was determined bydual-energy x-ray absorptiometry, the results are as follows: AP Lumbar Spine L1 through L4 BMD Patient (GM/SQCM): 0.795 T-Score (Standard deviations from young adult peak bonedensity): -2.3 and a Z- Score of 0.4. . It should be noted thatscoliosis and osteoarthritis may falsely increase bone mineral densitymeasured in the lumbar spine. . Left mean femoral neck: BMD Patient (GM/SQCM): 0.553 T-Score (Standard deviations from young adult peak bonedensity): -2.7 and a Z- Score of -0.3. Left Total femur: BMD Patient (GM/SQCM): 0.694 T-Score (Standard deviations from young adult peak bonedensity): -2.0 and a Z- Score of 0.0. =====IMPRESSION:===== The patient bone density osteoporotic according to the World Health Organization (WHO) criteria 10 year fracture risk: Not performed as to value is below -2.5 Ordered By: DELMIS JOYNER Interpreted By: Ian Price MD, 01/11/2023 1:37 PM us Delmis Joyner PA-C DEXA Final Resu lt from Last 3 Months or Most Recently Relevant to Health Maintenance Insurance MEDICARE [facility] Advance Directives * Full Code (Latest Code Status on File) Date Activated Date Inactivated Comments 09/20/2018 4:05 PM 09/24/2018 6:14 PM * Full Code Date Activated Date Inactivated Comments 09/13/2018 7:32 PM 09/14/2018 6:25 PM * Full Code Date Activated Date Inactivated Comments 08/29/2018 12:19 AM 09/04/2018 7:20 PM Care Teams Radar Signal Processing Engineer Relationship Specialty Start Date End Date Delmis Joyner PA-C [address] [place], [place] [address] [place] [address] PCP - General PHYSICIAN AIR BRAKE RIGGER 01/09/23
--- OUTSIDE RECORDS SUMMARY | 2025-01-05 12:08 | XMS_ITS | Encounter Summary ---
Author Organization [facility] Address [address] [place] [address] Care Team Providers Care Clergy Member Name Role Phone Los Russell MD Primary Care Provider [phone] None, Provider Primary Care Provider Delmis Rivera PA-C Primary Care Provider [phone] Encounter Details Date Type Department Care Team (Latest Contact Info) Description 02/12/2018 Abstract [facility] , Corina Rodriguez MD Social History Tobacco Use Types Packs/Day Years Used Date Smoking Tobacco: Never Assessed Comments Unknown Sex and Gender Information Value Date Recorded Sex Assigned at Female 09/25/2024 9:21 AM CDT Legal Sex Female 7:07 PM CDT Gender Identity Female 09/25/2024 9:21 AM CDT Sexual Orientation Not on file documented as of this encounter Plan of Treatment Not on file documented as of this encounter Visit Diagnoses Not on filedocumented in this encounter Care Teams Clergy Member Relationship Specialty Start Date End Date Los Russell MD [address] [place] [address] PCP - General INTERNAL MEDICINE 08/28/18 08/22/22 None, ProviderMD PCP - General UNKNOWN PHYSICIAN SPECIALTY 08/23/22 01/08/23 Delmis Sibley PA-C [address] [place] [id number] PCP - General PHYSICIAN MARINE STEAMFITTER 01/09/23 documented as of this encounter
--- OUTSIDE RECORDS SUMMARY | 2025-01-05 12:08 | XMS_ITS | Encounter Summary ---
Author Organization [facility] Address [address] [place] [address] Care Team Providers Care Ship Engineer Name Role Phone Los Russell MD Primary Care Provider [phone] None, Provider Primary Care Provider Delmis Rivera PA-C Primary Care Provider [phone] Encounter Details Date Type Department Care Team (Late st Contact Info) Description 10/18/2021 Therapy Plan [facility] [address] [place], [place] [id number] Los Russell MD [address] [place] [address] Social History Tobacco Use Types Packs/Day Years [...] Exposure Response Date Recorded In the last 10 days, have sindi avila been in contact with someone who was confirmed or suspected to have Coronavirus/COVID-19? No / Unsure 10/21/2021 11:41 AM CDT documented as of this encounter Functional [...] Author Status No 09/20/2018 5:17 PM CDT Raellies Mimi S, R N Active * Do you have difficulty dressing or bathing? Answer Date of Assessment Author Status No 09/20/2018 5:17 PM CDT Raadriel Mimi S, R N Active * Because of a physical, mental, or emotional condition, do you have difficulty doing errands alone such as visiting a doctor's office or shopping? Answer Date of Assessment Author Status No 09/20/2018 5:17 PM CDT Raellies Mimi S, R N Active documented as of this encounter Mental Status * Because of a physical, mental, or emotional condition, do you have serious difficulty concentrating, remembering, or making decisions? Answer Entry Date Author Status No 09/20/2018 5:17 PM CDT Rick Mimi S, R N Active documented in this encounter Plan of Treatment Not on file documented as of this encounter Visit Diagnoses Diagnosis Urinary tract infection, site not specified- Primary documented in this encounter Care Teams Ship Engineer Relationship Specialty Start Date End Date Los Russell MD [address] [place] [address] PCP - General INTERNAL MEDICINE 08/28/18 08/22/22 None, MD Christopher PCP - General UNKNOWN PHYSICIAN SPECIALTY 08/23/22 01/08/23 Delmis Sibley PA-C [address] [place] [address] PCP - General PHYSICIAN DIFFERENTIAL REPAIRER 01/09/23 documented as of this encounter
--- OUTSIDE RECORDS SUMMARY | 2025-01-05 12:08 | XMS_ITS | Clinical Summary ---
Author Organization [facility] Address [address] [place] [address] Care Team Providers Care Auto Refinisher Name Role Phone Delmis Sibley Primary Care Provider [phone] Source Comments [facility],non-owned Affiliates and Associated Physician Practices is amultiple site organization consisting of ambulatory clinics and hospital sitesin [place], [place], [place] and [place]. This disclosure is being madepursuant to the Care Everywhere program and may not contain all information available regarding this patient. Last updated 17.[facility] Allergies Active Allergy Reactions Criticality Noted Date Comments Azithromycin Urticaria,Unknown High 02/02/2012 Aztreonam Urticaria,Rash High 09/27/2018 Cefaclor Urticaria,Unknown High 02/02/2012 Ceftriaxone Anaphylaxis,Other High 12/12/2013 unknown Cephalexin Anaphylaxis,Other High 02/02/2012 Unknown Ciprofloxacin Anaphylaxis,Other High 02/02/2012 unknown Clindamycin Urticaria,Unknown High 08/28/2018 Contrast-Iodinated Agents For Ct/Other Rash Medium 12/12/2013 Per family. Pt unsure and medicated. Etomidate Urticaria,Rash Medium 04/19/2021 Iodine Rash Medium 08/28/2018 Can have if pre-medicated with Benadryl and solumedrol Levofloxacin Urticaria,Unknown High 02/02/2012 Meropenem Urticaria,Unknown High 08/30/2018 Metronidazole Urticaria,Other High 02/02/2012 unknown Nitrofurantoin Vomiting Low 08/29/2018 Omeprazole Urticaria,Unknown High 08/28/2018 Oxycodone Urticaria,Unknown Medium 08/16/2023 Oxycodone-Acetaminophen Urticaria High 12/01/2019 Penicillins Urticaria,Other High 02/02/2012 Unknown Raniclor Other Low 12/12/2013 Unknown Sulfamethoxazole Other Low 12/12/2013 Unknown Sulfamethoxazole W-Trimethoprim Anaphylaxis High 02/02/2012 Tetracyclines Anaphylaxis,Other High 02/02/2012 Unknown Trimethobenzamide Other Low 12/12/2013 Unknown Medications * Be aware that medications may not be up to date on this document. Alwaysverify current medications with the patient. Eliquis 2.5 MG tablet Take 1 (one) tablet by mouth 2 times daily Active Synthroid 75 MCG tablet TAKE 1 TABLET BY MOUTH EVERY OTHER DAY ALTERNATING WITH 50MCG TABLET Active dilTIAZem coated beads 24hr (Cardizem CD) 120 MG capsule Take 1 (one) capsule by mouth once daily 4 Active Cholecalcifero l 125 MCG (5000 UT) Take 1 (one) tablet by mouth once daily Active folic acid (Folvite) 1 MG tabletIndicati ons:Methotrexa te, retirement, current use Take 1 (one) tablet by mouth once daily To reduce risk of methotrexate related side effects 30 tablet 11 5 Active methotrexate 2.5 MG tabletIndicati ons:Rheumatoid Arthritis Take 6 (six) tablets by mouth every 7 days (once a week) Reasons: Rheumatoid Arthritis 24 tablet 5 Active ALPRAZolam (Xanax) 0.25 MG tablet Take 1 (one) tablet by mouth 2 times daily as needed anxiety Active ketoconazole (Nizoral) 2 % cream APPLY TO THE AFFECTED AREA(S) toenails BY TOPICAL ROUTE ONCE DAILY 4 Active rosuvastatin (Crestor) 5 MG tablet Take 1 (one) tablet by mouth once daily 5 Active predniSONE (Deltasone) 2.5 MG tabletIndicati ons:Rheumatoid Arthritis Take 1 (one) tablet by mouth every morning Dose Increase Effective on 12/25/2024 Reasons: Rheumatoid Arthritis 90 tablet 5 Active predniSONE (Deltasone) 5 MG tabletIndicati ons:Rheumatoid Arthritis Take 1.5 (one and one-half) tablets by mouth every morning, THEN 1 (one) tablet every morning, THEN 0.5 (one-half) tablet every morning, THEN 0.5 (one-half) tablet every 14 days. May take initial dose 08/06/2024 as early as possible. Reasons: Rheumatoid Arthritis. 5 025 Discontin ued(Reord er) methotrexate 2.5 MG tabletIndicati ons:Rheumatoid Arthritis Take 6 (six) tablets by mouth every 7 days (once a week) Reasons: Rheumatoid Arthritis 24 tablet 5 025 Discontin ued(Reord er) predniSONE (Deltasone) 5 MG tabletIndicati ons:Rheumatoid Arthritis Take 0.5 (one-half) tablet by mouth every 2 days Reasons: Rheumatoid Arthritis 5 025 Discontin ued(Reord er) Active Problems Problem Noted Date Diagnosed Date Stage 3b chronic kidney disease 12/18/2024 Assessment & Plan (12/18/2024 11:35 AM CDT): Needs further PCP evaluation for chronic kidney insufficiency. Methotrexate does not effect kidney function but if worsens might need lower dose to avoid side effect. Avoid use of all NSAID medication. Tylenol (acetaminophen) is okay to use. Methotrexate, termite control representative, current use 09/08/2024 Overview (09/08/2024): Tolerating MTX well without early identified side effects. Needs initial lab monitor check with ongoing routine Q 12 week monitoring and daily folic acid. Assessment & Plan (12/18/2024 12:16 PM CDT): No findings suggest developing side effects from the use of methotrexate. Continue current treatment plan and recommend routine repeated monitoring laboratory testing every 12 weeks for continued safe use of this medication. Encouraged to continue daily folic acid supplementation at a minimum of 1 mg daily to reduce potential for possible methotrexate related side effects. Rheumatoid arthritis involving multiple joints 0 08/06/2024 Assessment & Plan (08/06/2024 2:20 PM CDT): Presented with eight months of joint pain and swelling in the hands and ankles with associated morning stiffness. She is unable to golf or do most activities due to pain. Does not have recent xrays or ESR, CRP. Was previously on Prednisone 5 mg daily for three months, was discontinued a week ago. Will restart Prednisone at a higher dose and taper down. Will also start her on low dose Methotrexate. Will get xrays of hands and feet as well as ESR, CRP. Resolved Problems Problem Noted Date Diagnosed Date Resolved Date Tuberculosis screening 08/06/202409/08 Need for hepatitis C screening test 08/06/2024 09/08/2024 Methotrexate, retirement, current use 08/06/2024 09/08/2024 Assessment & Plan (08/06/2024 2:17 PM CDT): The patient has been counseled on risks and benefits of methotrexate use including but not limited to the risk of liver toxicity, bone marrow suppression and methotrexate induced lung injury. The patient was advised to discontinue methotrexate and called this clinic immediately if any sudden cough, fevers or dyspnea on exertion develops. CBC with differential, liver function enzymes and renal/kidney function status will be routinely checked every 8-12 weeks to screen the patient for possible developing methotrexate side effects. While receiving treatment with methotrexate the patient should avoid the use of sulfonamide containing antibiotics such as trimethoprim/sulfamethoxazole also known as Bactrim due to significant and potentially severe drug interaction related side effects. Additionally, alcohol should not be consumed while using methotrexate due to an increase risk for the possible future development of liver related side effects including liver injury such as cirrhosis. Encounters Date Type Department Care Team Description 12/26/2024 Orders Only [facility] - Rheumatology [address] [place] [address], [address] [place] [address] Emile Morris DO Rheumatoid arthritis involving multiple joints (HCC) 12/25/2024 Telephone [facility] - Rheumatology [address] [place], [place] [address], [address] [place] [address] Emile Morris DO Update 12/18/2024 10:40 AM CDT Office Visit [facility] - Rheumatology [address] [place] [address], [address] [place] [address] Emile Morris DO Rheumatoid arthritis involving multiple joints (HCC) (Primary Dx); Methotrexate, termite control representative, current use; Stage 3b chronic kidney disease (HCC) 11/28/2024 Orders Only [facility] - Rheumatology [address], [address] [place] [phone] Emile Morris DO Rheumatoid arthritis involving multiple joints (HCC) 11/19/2024 Refill [facility] Rheumatology [address], [address] [place] [phone] Emile Morris DO MEDICATION REFILL 11/10/2024 Results Follow-Up [facility] Rheumatology [address] [place] [address], [address] [place] [phone] Emile Morris DO 10/31/2024 Orders Only [facility] Rheumatology [address] [place] [address], [address] [place] [phone] Emile Morris DO Rheumatoid arthritis involving multiple joints (HCC) 10/24/[address], [address] [place] [address] Emile Morris DO Update 10/07/2024 Results Follow-Up [address], [address] [place] [address] Emile Morris DO from Last 3 Months Social History Tobacco Use Types Packs/Day Years Used Date Smoking Tobacco: Never Smokeless Tobacco: Never Alcohol Use Standard Drinks/Week Comments Yes 0 (1 standard drink = 0.6 oz pur e alcohol) PHQ-2 Answer Date Recorded Patient Health Questionnaire-2 Score 0 12/18/2024 Comments Unknown Sex and Gender Information Value Date Recorded Sex Assigned at Not on file Legal Sex Female 6:00 AM YARD SPECIALIST Gender Identity Not on file Sexual Orientation Not on file Last Filed Vital Signs Vital Sign Reading Time Taken Comments Blood Pressure 126/86 12/18/2024 10:39 AM CDT Pulse 76 12/18/2024 10:39 AM CDT Temperature 36.3 C (97.3 F) 12/18/2024 10:39 AM CDT Respiratory Rate 16 12/18/2024 10:39 AM CDT Oxygen Saturation 99% 12/18/2024 10:39 AM CDT Inhaled Oxygen Concentration - - Weight 49.4 kg (109 lb) 12/18/2024 10:39 AM CDT Height 152.4 cm (5') 09/08/2024 9:04 AM CDT Body Mass Index 21.29 09/08/2024 9:04 AM CDT Plan of Treatment Upcoming Encounters Date Type Department Care Team (Late st Contact Info) Description 01/06/2025 Orders Only [facility] - Rheumatology [address] [facility], [address] [place] [address] Emile Morris DO [address] [place] [address] Elevated serum creatinine 08/13/2025 11:20 AM CDT Office Visit [facility] - Rheumatology [address], [address] [place] [address] Emile Morris DO [address] [place] [address] Health Maintenance Due Date Last Done Comments MEDICARE AWV 12 MONTHS 1941 DTAP/TDAP/TD VACCINES (1 - Tdap) 1960 PNEUMOCOCCAL VACCINE 50+ (1 of 1 - PCV) 12/15/1991 ZOSTER VACCINE (1 of 2) 12/15/1991 Respiratory Syncytial Virus (RSV) Vaccine Pt: or over 60 yrs (1 - 1-dose 75+ series) 2016 COVID-19 VACCINE (3 - 2024-2 6 season) 2024 07/13/2020, 06/15/2020 INFLUENZA VACCINE (#1) 2024 01/30/2012 BONE DENSITY TESTING Completed 01/11/2023 DEPRESSION SCREENING Completed 08/06/2024 HEPATITIS B VACCINE Aged Out No longe r eligible based on patient's age to complete this topic HIB VACCINE Aged Out No longer eligi ble based on patient's age to complete this topic HPV VACCINE Aged Out No longer eligi ble based on patient's age to complete this topic MENINGOCOCCAL (Group B) VACCINE SHARED DECISION-MAKING Aged Out No longer eligible based on patient's age to complete this topic MENINGOCOCCAL GROUPS A/C/Y/W VACCINE Aged Out No longer eligible b ased on patient's age to complete this topic Procedures Procedure Name Priority Date/Time Associated Diagnosis Comments C-REACTIVE PROTEIN Routine 12/09/2024 10 :16 AM CDT Rheumatoid arthritis involving multiple joints (HCC) COMPREHENSIVE METABOLIC PANEL Routine 12/09/2024 10:16 AM CDT Methotrexate, retirement, current use CBC W AUTO DIFFERENTIAL Routine 12/09/2024 10:16 AM CDT Methotrexate, termite control representative, current use C-REACTIVE PROTEIN Routine 11/10/2024 7: 26 AM CDT Rheumatoid arthritis involving multiple joints (HCC) C-REACTIVE PROTEIN Routine 10/06/2024 3: 21 PM CDT Rheumatoid arthritis involving multiple joints (HCC) from Last 3 Months Results * C-REACTIVE PROTEIN (12/09/2024 10:16 AM CDT) Only the most recent of3 resultswithin the time period is included. Pathologist [facility] C-Reactive Protein <3.0 <8.0 mg/L [facility] Comment: REPORT COMMENT: FASTING:NO Test Performed at: [employer] [facility] [address] [place] [address] KERRI ZAMBRANO MD Blood BLOOD SPECIMEN / Unknown 12/09/2024 10:16 AM CDT 12/09/2024 10:20 AM CDT us Emile Morris DO LAB - CHEMISTRY ORDERABLES Final Result [facility] [id number] [place] [address] * CBC WITH DIFFERENTIAL (12/09/2024 10:16 AM CDT) Pathologist [facility] White Blood Cell Count 7.8 3.8 - 10.8 Thousand/u L [facility] RBC 4.02 3.80 - 5.10 Million/uL [facility] Hemoglobin 12.5 11.7 - 15.5 g/dL [facility] Hematocrit 38.6 35.0 - 45.0 % [facility] MCV 96.0 80.0 - 100.0 fL [facility] MCH 31.1 27.0 - 33.0 pg [facility] MCHC 32.4 32.0 - 36.0 g/dL [facility] Comment: For adults, a slight decrease in the calculated MCHC value (in the range of 30 to 32 g/dL) is most likely not clinically significant; however, it should be interpreted with caution in correlation with other red cell parameters and the patient's clinical condition. RDW 14.1 11.0 - 15.0 % [facility] Platelet Count 182 140 - 400 Thousand/u L [facility] MPV 10.6 7.5 - 12.5 fL [facility] Neutrophil Absolute 5452 1500 - 7800 cells/uL [facility] Lymphocytes Absolute 1388 850 - 3900 cells/uL [facility] Absolute Monocytes 647 200 - 950 cells/uL [facility] Eosinophils Absolute 289 15 - 500 cells/uL [facility] Basophils Absolute 23 0 - 200 cells/uL [facility] Granulocytes % 69.9 % [facility] Lymphocytes % 17.8 % [facility] Monocytes % 8.3 % [facility] Eosinophils % 3.7 % [facility] Basophils % 0.3 % [facility] Comment: Test Performed at: [facility] [id number] [place] [address] KERRI ZAMBRANO MD Blood BLOOD SPECIMEN / Unknown 12/09/2024 10:16 AM CDT 12/09/2024 10:20 AM CDT us Emile Morris DO LAB - HEMATOLOGY ORDERABLES Rahel bella Result [facility] [id number] [place] [address] * (ABNORMAL) COMPREHENSIVE METABOLIC PANEL (12/09/2024 10:16 AM CDT) Pathologist [facility] Glucose 119 65 - 139 mg/dL [facility] Comment: Non-fasting reference interval BUN 14 7 - 25 mg/dL [facility] Creatinine 1.35(H) 0.60 - 0.95 mg/dL [facility] eGFR by Cystatin C 39(L) > OR = 60 mL/min/1.7 3m2 [facility] BUN/Creatinine Ratio 10 6 - 22 (calc) [facility] Sodium 145 135 - 146 mmol/L [facility] Potassium 3.4(L) 3.5 - 5.3 mmol/L [facility] Chloride 106 98 - 110 mmol/L [facility] CO2 29 20 - 32 mmol/L [facility] Calcium 10.1 8.6 - 10.4 mg/dL [facility] Protein Total 6.5 6.1 - 8.1 g/dL [facility] Albumin 4.4 3.6 - 5.1 g/dL [facility] Globulin Total 2.1 1.9 - 3.7 g/dL (calc) [facility] Albumin/Globulin Ratio 2.1 1.0 - 2.5 (calc) [facility] Bilirubin Total 0.5 0.2 - 1.2 mg/dL [facility] Alkaline Phosphatase 54 37 - 153 U/L [facility] AST 18 10 - 35 U/L [facility] ALT 21 6 - 29 U/L [facility] Comment: Test Performed at: [facility] [address] [place] [address] KERRI ZAMBRANO MD Blood BLOOD SPECIMEN / Unknown 12/09/2024 10:16 AM CDT 12/09/2024 10:20 AM CDT Emile Morris DO LAB - CHEMISTRY ORDERABLES Final Result [facility] [id number] [place] [address] from Last 3 Months Insurance MEDICARE [facility] Care Teams Auto Refinisher Relationship Specialty Start Date End Date Delmis Sibley PA [address] [place] [id number] PCP - General Physician Sports Attorney 07/21/24
== END 2025-01-05 11:55 | disposition home or self-care (01) ==
PROVIDERS: PCP Physician Assistant Medical; Visit Provider Internal Medicine Rheumatology
DX: R06.02 Shortness of breath (principal); Z79.899 Other long term (current) drug therapy
CPT/HCPCS: 71046